=== PATIENT | male | born 1960 ===

== ENCOUNTER 2016-09-17 06:09 | Emergency (ER) | payer BC, OTHER ==
[2016-09-17 06:09] VITALS: BMI 27.1
[2016-09-17] MEDS ORDERED: DiphenhydrAMINE 50 mg/ml Inj ONE (06:22)
[2016-09-17 06:24] VITALS: TEMP 98.3
[2016-09-17] MEDS ORDERED: Sodium Chloride 0.9% 1,000 ML IV STA (06:26)
[2016-09-17] MEDS ORDERED: DiphenhydrAMINE 50 mg/ml Inj IV STA (06:26)
--- NOTE | 2016-09-17 06:31 | ED PDOC ---
HPI: Allergic Reaction Time Seen by Provider: 09/17/16 06:12 Chief Complaint (Nursing): Allergic Reaction Chief Complaint (Provider): diffuse pruritus History Per: Patient History/Exam Limitations: no limitations Onset/Duration Of Symptoms: Hrs (2 ) Current Symptoms Are (Timing): Still Present Additional Complaint(s): 56yo male with PMHx of allergic reactions to insect bites presents to the ED with c/o diffuse pruritus for 2 hours. Patient reports acute diffuse pruritus and believes he was bit by an insect on his chest earlier. Patient complaining of itchiness all over his body including his feet and hands. No SOB or trouble swallowing. Patient took allergy medication [employer] which has not given him any relief. Denies n/v/d, fever, cough. Past Medical History Reviewed: Historical Data, Nursing Documentation, Vital Signs Vital Signs: Last Vital Signs Temp 98.3 F 09/17/16 06:17 Pulse 95 H 09/17/16 06:17 Resp 14 09/17/16 06:17 BP 146/87 09/17/16 06:17 Pulse Ox 96 09/17/16 06:17 - Medical History PMH: Emphysema, Gastritis Denies: Chronic Kidney Disease Other PMH: allergic reactions to insect bites - Surgical History Surgical History: No Surg Hx - Family History Family History: States: No Known Family Hx - Social History Current smoker - smoking cessation education provided: No Alcohol: None Drugs: Denies - Home Medications Home Medications: Ambulatory Orders Medication Instructions Recorded Methylprednisolone [Medrol Dose 4 mg PO DAILY #21 mg 09/28/15 Pack (21 tabs)] Pantoprazole [Protonix EC Tab] 40 mg PO DAILY #0 ect 09/28/15 Zolpidem Tartrate [Ambien] 5 mg PO HS #30 tablet 09/28/15 traMADol [Ultram] 50 mg PO TID #90 tab 09/28/15 - Allergies Allergies/Adverse Reactions: Allergies Allergy/AdvReac Type Severity Reaction Status Date / Time tetanus and diphtheria Allergy RASH Verified 09/24/15 19:00 toxoids [tetanus & diphtheria toxoids] Review of Systems ROS Statement: Except As Marked, All Systems Reviewed And Found Negative Constitutional: Negative for: Fever ENT: Positive for: Other (no trouble swallowing ) Respiratory: Negative for: Cough, Shortness of Breath Gastrointestinal: Negative for: Nausea, Vomiting, Diarrhea Skin: Positive for: Other (diffuse pruritus ) Physical Exam - Reviewed Nursing Documentation Reviewed: Yes Vital Signs Reviewed: Yes - Physical Exam Appears: Positive for: Well, No Acute Distress, Uncomfortable Head Exam: Positive for: ATRAUMATIC, NORMAL INSPECTION, NORMOCEPHALIC Skin: Positive for: Warm, Dry, Rash (mild urticarial rash to extremities and trunk ) Eye Exam: Positive for: Normal appearance, EOMI, PERRL ENT: Positive for: Normal ENT Inspection. Negative for: Pharyngeal Erythema, Tonsillar Exudate, Tonsillar Swelling Neck: Positive for: Normal, Painless ROM, Supple Cardiovascular/Chest: Positive for: Regular Rate, Rhythm. Negative for: Murmur , Tachycardia Respiratory: Positive for: Normal Breath Sounds. Negative for: Wheezing, Respiratory Distress Gastrointestinal/Abdominal: Positive for: Normal Exam, Soft. Negative for: Tenderness Back: Positive for: Normal Inspection Extremity: Positive for: Normal ROM. Negative for: Deformity, Swelling Neurologic/Psych: Positive for: Alert, Oriented - ECG O2 Sat by Pulse Oximetry: 96 Pulse Ox Interpretation: Normal (RA) - Progress ED Course And Treament: 0620: Impression: 56yo male w/ acute allergic urticaria Plan: Benadryl 50mg IV, Pepcid 40mg IV, Solu-medrol 125mg IVP, IVF Reassess Patient s/o to Dr. Castaneda at 0700 pending reeval. Scribe Attestation: Documented by Kelly Liu acting as a scribe for Jordin Velázquez MD. Provider Scribe Attestation: All medical record entries made by the Scribe were at my direction and personally dictated by me. I have reviewed the chart and agree that the record accurately reflects my personal performance of the history, physical exam, medical decision making, and the department course for this patient. I have also personally directed, reviewed, and agree with the discharge instructions and disposition. Disposition - Clinical Impression Clinical Impression: Allergic urticaria - Patient ED Disposition Is Patient to be Admitted: Transfer of Care - Disposition Disposition: Transfer of Care Disposition Time: 07:00 Condition: STABLE Patient Signed Over To: Osman Castaneda Y Handoff Comments: pending reeval
--- NOTE | 2016-09-17 07:13 | ED PDOC ---
- ECG O2 Sat by Pulse Oximetry: 96 (RA) Pulse Ox Interpretation: Normal Medical Decision Making Medical Decision Making: Receiving Sign Out: Signed out to me by Dr. Velázquez pending reevaulation and final disposition. pt reevaluated. feels better. allergy symptoms improved. pt to be dc home with medications and will follow up as oupt. Scribe Attestation: Documented by Hali Kohler acting as a scribe for Osman Castaneda MD. Provider Attestation: All medical record entries made by the Scribe were at my direction and personally dictated by me. I have reviewed the chart and agree that the record accurately reflects my personal performance of the history, physical exam, medical decision making, and the department course for this patient. I have also personally directed, reviewed, and agree with the discharge instructions and disposition. Disposition Counseled Patient/Family Regarding: Studies Performed, Diagnosis, Need For Followup - Clinical Impression Clinical Impression: Allergic urticaria - POA Present On Arrival: None - Disposition Referrals: [facility] [Outside] [facility] [Outside] Disposition: Routine/Home Disposition Time: 07:40 Condition: STABLE Additional Instructions: follow up with your primary doctor in 1-2 days return to the ED with any worsening or concerning symptoms. Prescriptions: DiphenhydrAMINE [Benadryl] 25 mg PO Q6H PRN #10 cap PRN Reason: Allergy Symptoms Famotidine [Pepcid] 20 mg PO BID PRN #10 tab PRN Reason: Heartburn predniSONE [Prednisone] 40 mg PO DAILY #8 tab Instructions: Urticaria (ED) Progress Note - Review of Symptoms Events since last encounter: Time: 40 Pt reports he is feeling much better. Stable for d/c home. Advised to f/u with PCP in 1-2 days.
[2016-09-17 08:29] VITALS: BP 132/74; PULSE 89; RESP 19
[2016-09-19 21:11] VITALS: O2SAT 96
== END 2016-09-17 08:29 | disposition home or self-care (01) ==
LOC: H.ER 06:09
DX: L50.0 Allergic urticaria (principal)
CPT/HCPCS: 96374; 99282; J1200; J2930; J7040